=== PATIENT | female | born 1985 ===

== ENCOUNTER 2018-07-06 13:15 | Emergency (ER) | payer OTHER ==
[~2018-07-06] VITALS: Ht 154.9 cm; Wt 70.3 kg
[~2018-07-06 13:15] MED LIST: TRAMADOL HCL50 MG PO
== END 2018-07-07 00:16 | disposition home or self-care (01) ==
LOC: ER 13:15
DX: K59.09 Other constipation (principal)

== ENCOUNTER → 2018-09-18 | Emergency (ER) | payer OTHER ==
[~2018-09-18] VITALS: Ht 154.9 cm; Wt 70.3 kg
== END | disposition home or self-care (01) ==
LOC: ER 18:03
DX: G43.909 Migraine, unspecified, not intractable, without status migrainosus (principal); F43.9 Reaction to severe stress, unspecified

== ENCOUNTER 2020-07-18 15:16 | Emergency (ER) | payer OTHER ==
[~2020-07-18] VITALS: Ht 154.9 cm; Wt 69.4 kg
== END 2020-07-18 22:04 | disposition home or self-care (01) ==
LOC: ER 15:16
DX: N61.0 Mastitis without abscess (principal); Z03.818 Encounter for observation for suspected exposure to other biological agents ruled out
CPT/HCPCS: 71260; Q9965

== ENCOUNTER 2021-01-18 10:37 | Emergency (ER) | payer OTHER ==
[~2021-01-18] VITALS: Ht 154.9 cm; Wt 70.3 kg
[2021-01-18] MEDS ORDERED: NEO-POLYMYXIN-H10 M2 (10:53)
[2021-01-18] MEDS ORDERED: MEDROLPACK PO (14:51)
[2021-01-18] MEDS ORDERED: AMOX-CLAV 875-1 EACH PO (14:51)
[2021-01-18] MEDS ORDERED: CLEOCIN HCL300 MG PO (14:51)
== END 2021-01-18 14:52 | disposition home or self-care (01) ==
LOC: ER 10:37
DX: H60.8X2 Other otitis externa, left ear (principal); H92.02 Otalgia, left ear